=== PATIENT | male | born 1980 | race Caucasian/White ===

== ENCOUNTER 2016-08-28 13:08 | Emergency (ER) | payer SELFPAY ==
[2016-08-28] MEDS ORDERED: PRINIVIL10 M1 PO ×2 (13:18→14:30)
[2016-08-28] MEDS ORDERED: TENORMIN50 M1 PO (13:18)
== END 2016-08-28 14:49 ==
LOC: EDMED 13:08
PROC: 0HQKXZZ Repair Right Lower Leg Skin, External Approach (ICD-10-PCS; principal; 2016-08-28)
DX: S81.811A Laceration without foreign body, right lower leg, initial encounter (principal); I10 Essential (primary) hypertension; Z79.899 Other long term (current) drug therapy; Z23 Encounter for immunization; W45.8XXA Other foreign body or object entering through skin, initial encounter; Y93.89 Activity, other specified; Y92.69 Other specified industrial and construction area as the place of occurrence of the external cause; Y99.0 Civilian activity done for income or pay